=== PATIENT | female | born 1940 | race Caucasian/White ===

== ENCOUNTER 2016-10-16 08:39 | Emergency (ER) | payer BC, MEDICARE ==
[~2016-10-16] VITALS: Ht 162.6 cm; Wt 76.0 kg
[~2016-10-16 08:39] MED LIST: ATOR10 PO; GEMF600 PO; HYDR12.56 PO; LABE100T2 PO; POTA-243 PO; PROM6.257 PO; VENTAER INH; ZITH250T PO
[2016-10-16 08:41] VITALS: BP 211/101; PULSE 72; RESP 20; TEMP 97.5; O2SAT 95
[2016-10-16] MEDS ORDERED: ATOR20TA15 PO (08:56)
[2016-10-16] MEDS ORDERED: LABE200T2 PO (08:57)
[2016-10-16] MEDS ORDERED: PANT40TA3 PO (08:57)
[2016-10-16] MEDS ORDERED: POTA-243 PO (08:57)
[2016-10-16] MEDS ORDERED: FENO160T PO (08:57)
[2016-10-16] MEDS ORDERED: HYDR25TA5 PO (08:57)
--- NOTE | 2016-10-16 09:33 | RADRPT ---
EXAM DATE/TIME: 10/16/2016 09:19 [place] COMPARISON: CHEST SINGLE AP, December 07, 2013, 8:32. INDICATIONS : Cough MEDICAL HISTORY : None. SURGICAL HISTORY : None. ENCOUNTER: Initial ACUITY: 1 day PAIN SCORE: 0/10 LOCATION: Bilateral chest FINDINGS: Surgical clips right upper quadrant. Aortic calcification, cardiomegaly. Clear lungs. Degenerative ch anges of the spine. CONCLUSION: No acute disease. Alfonzo Cazares MD on October 16, 2016 at 9:31 Board Certified Radiologist. This report was verified electronically.
--- NOTE | 2016-10-16 09:35 | PD ---
HPI . Cough and congestion Chief Complaint: Cold / Flu Symptoms Time Seen by Provider: 08:54 Travel History International Travel<30 days: No Contact w/Intl Traveler<30days: No Traveled to known affect area: No History of Present Illness HPI Patient presents with cough and congestion that started 2 days ago. The only thing that she has done for prior presentation is Chloraseptic Anthony. She denies fever. She denies sputum production. PFSH Past Medical History High Cholesterol: Yes Hypertension: Yes Influenza Vaccination: Yes Past Surgical History Cholecystectomy: Yes Hysterectomy: Yes Social History Alcohol Use: No Tobacco Use: No Substance Use: No Allergies-Medications (Allergen,Severity, Reaction): Coded Allergies: No Known Allergies (Verified , 12/07/13) Reported Meds & Prescriptions Reported Meds & Active Scripts Active Reported Pantoprazole (Pantoprazole Sodium) 40 Mg Tab 40 Mg PO DAILY Klor-Con 10 (Potassium Chloride) 10 Meq Tab 20 Meq PO BID Fenofibrate 160 Mg Tab 160 Mg PO DAILY Labetalol (Labetalol HCl) 200 Mg Tab 200 Mg PO BID Hydrochlorothiazide 25 Mg Tab 25 Mg PO DAILY Atorvastatin (Atorvastatin Calcium) 20 Mg Tab 20 Mg PO DAILY Review of Systems Except as stated in HPI: all other systems reviewed are Neg General / Constitutional: No: Fever, Chills HENT: Positive: Rhinitis, Rhinorrhea, Congestion Respiratory: Positive: Cough, No: Shortness of Breath, Wheezing Gastrointestinal: No: Nausea, Vomiting, Diarrhea Physical Exam Narrative GENERAL: Healthy-appearing woman who is in no distress. SKIN: Warm and dry. HEAD: Atraumatic. Normocephalic. EYES: Pupils equal and round. ENT: No nasal bleeding or discharge. Mucous membranes pink and moist. She has some clear rhinorrhea. Oropharynx is clear. NECK: Trachea midline. No cervical lymphadenopathy. CARDIOVASCULAR: Regular rate and rhythm. Heart sounds are normal. RESPIRATORY: No accessory muscle use. Lungs are clear with full air movement throughout. GASTROINTESTINAL: Abdomen soft, non-tender, nondistended. MUSCULOSKELETAL: No obvious deformities. No edema. NEUROLOGICAL: Awake and alert. No obvious cranial nerve deficits. Motor grossly within normal limits. Normal speech. PSYCHIATRIC: Appropriate mood and affect; insight and judgment normal. Data Data Last Documented VS Vital Signs Date Time Temp Pulse Resp B/P Pulse Ox O2 Delivery O2 Flow Rate FiO2 10/16/16 08:41 97.5 72 20 211/101 95 Room Air Orders Chest, Pa & Lat (10/16/16 09:12) MDM Medical Decision Making Medical Screen Exam Complete: Yes Emergency Medical Condition: Yes Differential Diagnosis Differential diagnosis includes but is not limited to influenza, upper respiratory infection, bronchitis, pneumonia Narrative Course Patient presents with cold symptoms. She was concerned that she might have pneumonia. Her chest x-ray is clear. She will be discharged with symptomatic care. Diagnosis Primary Impression: Cold Patient Instructions: Cold Symptoms (ED), General Instructions Additional Instructions: I recommend the use of a Neti Pot. You may use a nasal spray such as Afrin for up to 3 days. You may take an tnme-xij-iwamfjo antihistamine such as Zyrtec or Claritin as needed for runny secretions. You may take pseudoephedrine as needed for congestion. You will need to sign for this at the pharmacy. You may take a cough syrup such as Delsym as needed for cough. Disposition: 01 DISCHARGE HOME Condition: Stable Mendy Sandoval MD Oct 16, 2016 09:35
[2016-10-16 09:42] VITALS: BP 150/86; TEMP 98.1
== END 2016-10-16 09:42 | disposition home or self-care (01) ==
LOC: NEPE 08:39
DX: J00 Acute nasopharyngitis [common cold] (principal)
CPT/HCPCS: 71020; 99283

== ENCOUNTER 2017-12-21 06:56 | Emergency (ER) | payer MEDICARE ==
[~2017-12-21 06:56] MED LIST changes: -ATOR10 PO; +ATOR20TA15 PO; +FENO160T PO; -GEMF600 PO; -HYDR12.56 PO; +HYDR25TA5 PO; +KLOR10TA PO; -LABE100T2 PO; +LABE200T2 PO; +PANT40TA3 PO; -POTA-243 PO; -PROM6.257 PO; -VENTAER INH; -ZITH250T PO
[2017-12-21 07:02] VITALS: BP 213/84; PULSE 66; RESP 16; TEMP 97.2; O2SAT 96
[2017-12-21 07:24] VITALS: BP 177/74; PULSE 66; RESP 18; O2SAT 96
--- NOTE | 2017-12-21 07:47 | PD ---
HPI Chief Complaint: Complaint Time Seen by Provider: 07:31 Travel History International Travel<30 days: No Contact w/Intl Traveler<30days: No Traveled to known affect area: No History of Present Illness HPI Patient is a 77-year-old female presents emergency department for evaluation of dysuria or urgency and burning for the past few days. Patient states she has a history of frequent urinary tract infections and thinks this is similar. She denies any abdominal pain generalized fatigue or weakness. She did say that she had one episode of nausea yesterday and some diarrhea which is resolved. No fevers otherwise feels well. She has never had to be hospitalized for urinary tract infection before. She states that she is about to go back to [place] where she lives and does want to be checked out and make sure that if she did have urinary tract infection that she start antibiotics prior to leaving. States symptoms are moderate, associated signs symptoms in context as above. Patient is a 62 medication history. She has no chest pain shortness of breath nor headache. PFSH Past Medical History High Cholesterol: Yes Hypertension: Yes Influenza Vaccination: Yes ?: Not Past Surgical History Cholecystectomy: Yes Hysterectomy: Yes Social History Alcohol Use: No Tobacco Use: No Substance Use: No Allergies-Medications (Allergen,Severity, Reaction): Coded Allergies: No Known Allergies (Verified , 12/07/13) Reported Meds & Prescriptions Reported Meds & Active Scripts Active Keflex (Cephalexin) 500 Mg Cap 500 Mg PO Q6H 7 Days Reported Pantoprazole (Pantoprazole Sodium) 40 Mg Tab 40 Mg PO DAILY Klor-Con 10 (Potassium Chloride) 10 Meq Tab 20 Meq PO BID Fenofibrate 160 Mg Tab 160 Mg PO DAILY Labetalol (Labetalol HCl) 200 Mg Tab 200 Mg PO BID Hydrochlorothiazide 25 Mg Tab 25 Mg PO DAILY Atorvastatin (Atorvastatin Calcium) 20 Mg Tab 20 Mg PO DAILY Review of Systems Except as stated in HPI: all other systems reviewed are Neg Physical Exam Narrative GENERAL: Well-developed, well-nourished, quite pleasant nontoxic appearance in no obvious distress SKIN: Focused skin assessment warm/dry. HEAD: Atraumatic. Normocephalic. EYES: Pupils equal and round. No scleral icterus. No injection or drainage. ENT: No nasal bleeding or discharge. Mucous membranes pink and moist. NECK: Trachea midline. No JVD. CARDIOVASCULAR: Regular rate and rhythm. No murmur appreciated. RESPIRATORY: No accessory muscle use. Clear to auscultation. Breath sounds equal bilaterally. GASTROINTESTINAL: Abdomen soft, non-tender, nondistended. Hepatic and splenic margins not palpable. MUSCULOSKELETAL: No obvious deformities. No clubbing. No cyanosis. No edema. No CVA tenderness NEUROLOGICAL: Awake and alert. No obvious cranial nerve deficits. Motor grossly within normal limits. Normal speech. PSYCHIATRIC: Appropriate mood and affect; insight and judgment normal. Data Data Last Documented VS Orders Orders Urinalysis - C+S If Indicated (12/21/17 07:09) Ed Discharge Order (12/21/17 09:27) Urine Culture (12/21/17 07:17) Labs Laboratory Tests Test 12/21/17 07:17 Urine Color YELLOW Urine Turbidity CLOUDY Urine pH 6.5 Urine Specific [place] 1.018 Urine Protein 100 mg/dL Urine Glucose (UA) NEG mg/dL Urine Ketones NEG mg/dL Urine Occult Blood MOD Urine Nitrite POS Urine Bilirubin NEG Urine Urobilinogen 2.0 MG/DL Urine Leukocyte Esterase LARGE Urine RBC 40 /hpf Urine WBC /hpf Urine WBC Clumps MANY Urine Calcium Oxalate Crystals FEW /hpf Urine Bacteria MANY /hpf Microscopic Urinalysis Comment CULTURE INDICATED MDM Medical Decision Making Medical Screen Exam Complete: Yes Emergency Medical Condition: Yes Differential Diagnosis UTI, sepsis unlikely, pyelonephritis unlikely Narrative Course Patient room to the emergency department, she appears quite well in no obvious distress, UA does show evidence of urinary tract infection, vital signs are reassuring. She is upright reading a book in no obvious distress. She is stable for trial of outpatient therapy, empiric antibiotics. Discussed with her return to ED criteria Diagnosis Primary Impression: UTI (urinary tract infection) Med/Other Pt SpecificInfo: Prescription(s) given Scripts Cephalexin (Keflex) 500 Mg Cap 500 MG PO Q6H for Infection for 7 Days, #28 CAP 0 Refills Prov: Sumanth Araujo MD 12/21/17 Disposition: 01 DISCHARGE HOME Condition: Stable Sumanth Araujo MD Dec 21, 2017 07:47
[2017-12-21] MEDS ORDERED: CEPH-460 PO (08:50)
[2017-12-21 10:30] LABS: BILIRUBIN, URINE NEG (NEG); BLOOD, URINE MOD (NEG); GLUCOSE,URINE NEG (NEG); KETONE, URINE NEG (NEG); NITRITE,URINE POS (NEG); PH, URINE 6.5 (5.0-8.5); URINE COLOR YELLOW (YELLW/STRAW); URINE LEUKOCYTE ESTERASE LARGE (NEG); WHITE BLOOD CELL CLUMPS MANY
[2017-12-21 10:31] LABS: BACTERIA, URINE MANY /hpf; CALCIUM OXALATE CRYSTALS,URINE FEW /hpf
== END 2017-12-21 09:45 | disposition home or self-care (01) ==
LOC: NEPC 06:56
DX: N39.0 Urinary tract infection, site not specified (principal); B96.20 Unspecified Escherichia coli [E. coli] as the cause of diseases classified elsewhere; R11.0 Nausea; R19.7 Diarrhea, unspecified; E78.00 Pure hypercholesterolemia, unspecified; I10 Essential (primary) hypertension; Z79.899 Other long term (current) drug therapy
CPT/HCPCS: 81001; 87077; 87086; 87186; 99283